=== PATIENT | male | born 1985 | race Caucasian/White ===

== ENCOUNTER 2020-04-27 10:22 | Outpatient (CLI) | payer SELFPAY ==
--- NOTE | 2020-04-27 10:30 | XR_ITS ---
WS: [id number] EXAM: PA CHEST X-RAY WITH BILATERAL RIB SERIES DATE OF EXAMINATION: 04/27/2020, 1058 hours COMPARISON: None. HISTORY: Patient is 34 years old with left-sided rib pain. FINDINGS: Heart size and mediastinal contours as well as pulmonary vascularity are normal. Lungs are clear of c onsolidation. Minimal linear scarring or atelectasis right costophrenic angle. No effusion or pneumot horax. Bone density is normal. There are fractured anterior lateral left T8, T9 and T10 ribs without extensive displacement. No other definite rib fracture is seen.
--- NOTE | 2020-04-27 17:05 | XR_ITS ---
WS: [id number] EXAM: PA CHEST X-RAY WITH BILATERAL RIB SERIES DATE OF EXAMINATION: 04/27/2020, 1058 hours COMPARISON: None. HISTORY: Patient is 34 years old with left-sided rib pain. FINDINGS: Heart size and mediastinal contours as well as pulmonary vascularity are normal. Lungs are clear of c onsolidation. Minimal linear scarring or atelectasis right costophrenic angle. No effusion or pneumot horax. Bone density is normal. There are fractured anterior lateral left T8, T9 and T10 ribs without extensive displacement. No other definite rib fracture is seen. XR/XR ribs BI mn 4V w [id number] IMPRESSION: No acute pulmonary disease. Nondisplaced left anterolateral T8, T9 and T10 rib fractures.
== END 2020-04-27 10:23 | disposition home or self-care (01) ==
LOC: RADWPI 10:24
PROVIDERS: Family Provider Family Medicine; PCP Family Medicine; Visit Provider Family Medicine
DX: S22.42XA Multiple fractures of ribs, left side, initial encounter for closed fracture (principal); X58.XXXA Exposure to other specified factors, initial encounter
CPT/HCPCS: 71111

== ENCOUNTER → 2020-08-09 14:27 | Outpatient (BNVA) | payer SELFPAY | PROVIDERS: Family Provider Family Medicine; PCP Family Medicine; Visit Provider Nurse Practitioner Family | DX: Z20.828 Contact with and (suspected) exposure to other viral communicable diseases (principal); J06.9 Acute upper respiratory infection, unspecified | CPT/HCPCS: 87635 ==

== ENCOUNTER 2020-09-12 13:22 | Outpatient (CLI) | payer SELFPAY ==
[2020-09-12 13:59] LABS: Basophils # 0.1 10^3/uL (0.0-0.1); Basophils % 0.5 %; Eosinophils # 0.4 10^3/uL (0.0-0.8); Hematocrit 46.3 % (42.0-52.0); Hemoglobin 15.4 g/dL (11.7-16.6); Lymphocytes # 3.2 10^3/uL (0.8-4.8); Lymphocytes % 31.5 %; Mean Corpuscular HGB Conc 33.3 g/dL (30.0-36.0); Mean Corpuscular Volume 90.3 fL (80-94); Mean Platelet Volume 9.7 fL (7.4-10.4); Monocytes # 0.7 10^3/uL (0.2-0.9); Monocytes % 7.3 %; Neutrophils # 5.69 10^3/uL (1.8-7.7); Neutrophils % 56.4 %; Nucleated Red Blood Cells % 0 %; Platelet Count 245 10^3/cmm (130-400); Red Blood Count 5.13 10^6/uL (4.1-5.3); Red Cell Distribution Width 12.8 % (12.1-15.1); White Blood Count 10.1 10^3/uL (4.0-10.0)
[2020-09-12 14:04] LABS: Bilirubin Urine Neg (Negative); Blood Urine Neg (Negative); Glucose Urine UA Norm (Normal); Ketones Urine Negative (Negative); Leukocyte Esterase Urine Negative (Negative); Nitrate Urine Negative (Negative); Protein Urine Neg (Negative); Urine Appearance Clear (CLEAR); Urine Color Yellow (Yellow); Urobilinogen Urine Norm (Negative); pH Urine 6.5 (5-7)
[2020-09-12 14:19] LABS: Add Urine Culture? No; Bacteria Urine TRACE /hpf
[2020-09-12 14:26] LABS: Alanine Aminotransferase 52 U/L (0-41); Albumin Level 4.8 g/dL (3.5-5.2); Alkaline Phosphatase 94 IU/L (40-130); Anion Gap 14.9 (5-19); Aspartate Amino Transferase 28 U/L (0-40); Blood Urea Nitrogen 11 mg/dL (6-20); Calcium 9.3 mg/dL (8.5-10.5); Carbon Dioxide 24 mmol/L (22-29); Chloride 103 mmol/L (98-107); Globulin 2.8 g/dL (1.3-4.6); Glucose 89 mg/dL (65-115); Osmolality Calculated 285 mOsm/kg (285-295); Potassium 3.9 mmol/L (3.5-5.1); Sodium 138 mmol/L (136-145); Total Bilirubin 0.5 mg/dL (0.15-1.2); Total Protein 7.6 g/dL (6.6-8.7)
[2020-09-12 15:04] LABS: Hepatitis A Antibody IgM Non-Reactive (Nonreactive); Hepatitis B Core AB, Total Non-Reactive (Nonreactive); Hepatitis B Surface Antigen Non-Reactive (Nonreactive); Hepatitis C Virus Antibody Non-Reactive (Nonreactive)
[2020-09-13 16:13] LABS: Anti-Nuclear Antibody Screen NEGATIVE (NEGATIVE)
== END 2020-09-12 13:23 | disposition home or self-care (01) ==
LOC: LAB 13:24
PROVIDERS: PCP Family Medicine; Visit Provider Family Medicine
DX: R23.3 Spontaneous ecchymoses (principal)
CPT/HCPCS: 36415; 80053; 81001; 85025; 86038; 86431; 86705; 86706; 86709; 86803; 87340

== ENCOUNTER 2021-01-22 13:25 | Emergency (ER) | payer SELFPAY ==
[2021-01-22 13:32] VITALS: BP 163/102; PULSE 119; RESP 19; TEMP 37.1; O2SAT 95; BMI 32.8
--- NOTE | 2021-01-22 13:54 | W.ED.FALL ---
HPI - Fall General: Chief Complaint: Fall Stated Complaint: PELIVS/HIP PAIN Time Seen by Provider: 01/22/21 13:44 Source: patient Mode of arrival: ambulatory Limitations: no limitations History of Present Illness: HPI Narrative: Doc is a 35-year-old male who presents with a history of falling off of a lawnmower onto his lower back/pelvis 1.5 weeks ago. He states he tried to walk it off and has been using [id number] pain medications with only mild relief of his symptoms. He states he feels the pain mainly in his left pelvis and will sometimes have pain radiate down his left leg. Denies any saddle paresthesia or loss of bowel or bladder control. He is urinating without difficulty. He had an appointment at urgent care today and they advised him to come here for further evaluation. Has had no imaging of himself since this accident. Associated symptoms-after fall: Denies abdominal pain, chest pain, headache(s) or neck pain Review of Systems Const: Denies: fever(s) or chills Eyes: Denies: change in vision ENMT: Denies: throat pain Card: Denies: chest pain or palpitations Resp: Denies: dyspnea or productive cough GI: Denies: abdominal pain : Denies: difficulty urinating Musc: Reports: back pain and extremity pain; Denies: neck pain or extremity swelling Skin/Breast: Denies: rash or pruritus Neuro: Denies: headache(s) or frequent falls [facility] ED PFSH: Medical History Fibromyalgia No pertinent past medical history Surgical History History of eye surgery Family History Other Rheumatoid arthritis Thyroid condition Social History Smoking and tobacco status: current every day smoker e-cigarettes E-Cigarette Details: e-cigarette Alcohol intake: current Alcohol intake frequency: holidays/special occasions only Physical Exam Const: COMMON NORMALS: no acute distress GENERAL APPEARANCE: cooperative HENMT: COMMON NORMALS: normocephalic and atraumatic HEAD & SCALP: normocephalic and atraumatic Eye: COMMON NORMALS: Equal, round and reactive pupils present and EOMs intact bilaterally PUPIL: Yes Equal, round and reactive pupils present Neck/C-Spine: COMMON NORMALS: full ROM GENERAL: Yes normal visual inspection Chest: COMMONS NORMALS: normal inspection of the chest CHEST: Yes Symmetrical chest wall rise Resp: COMMON NORMALS: normal respiratory effort EFFORT & INSPECTION: Yes able to speak in complete sentences and Yes symmetric chest movement Cardio: COMMON NORMALS: regular rate and regular rhythm RATE: regular rate RHYTHM: regular rhythm Back/Pelvis: LUMBAR SPINE/LOWER BACK: Yes normal to inspection BACK IMAGE (MALE): 1. tender here 2. mild tenderness here Course ED course: IM shots of Decadron and Toradol ordered. Vital Signs: Vital signs: Vital Signs Temperature 98.7 F 01/22/21 13:32 Pulse Rate 119 H 01/22/21 13:32 Respiratory Rate 19 H 01/22/21 13:32 Blood Pressure 163/102 01/22/21 13:32 Pulse Oximetry 95 01/22/21 13:32 MDM - Fall MDM Narrative: Medical decision making narrative: No red flags for crafti back pain. We will treat him conservatively with IM shots of steroids and Toradol. We will discharge him home on indomethacin and muscle relaxers. He states he has a MRI scheduled for Friday and I told him to keep this appointment. Imaging Data^: Pelvis: Radiologist's impression: NO acute findings lumbar spine: Radiologist's impression: NO acute findings Discharge Plan Discharge Patient Disposition: Home Clinical Impression: Low back pain Qualifiers: Chronicity: acute Back pain laterality: left Sciatica presence: with sciatica Sciatica laterality: sciatica of left side Qualified Code(s): M54.42 - Lumbago with sciatica, left side Condition: Stable Prescriptions: New indomethacin 25 mg capsule 25 mg PO TID PRN (Reason: pain) Qty: 12 RF: 0 cyclobenzaprine 10 mg tablet 10 mg PO BID PRN (Reason: muscle spasm) Qty: 12 RF: 0 No Action Savella 50 mg tablet 50 mg PO BID Qty: 60 RF: 0 Midol Complete 500-60-15 mg Tablet 2 tab PO PRN RF: 0 Tylenol Extra Strength 500 mg Tablet 1,000 mg PO PRN RF: 0 sildenafil (pulm.hypertension) 20 mg tablet 20 - 100 mg PO PRN RF: 0 Discharge Orders: Discharge ED (Routine); Ordered 01/22/21 Ordered By: Khushboo Barahona Referrals: Mireille Bautista DO [Primary Care Provider] - Discharge Diet: Usual diet Discharge Activity: Increase activity as tolerated Patient Instructions: Opioid Safety Activity Restrictions/Additional Instructions: Take indomethacin 3 times a day for the next 3 days. Take as needed as directed after that. Take with food. Use muscle relaxer as needed as directed. Do not drive or operate machinery while taking this medication. Follow-up with your family doctor in 3 to 5 days. Discussed outpatient physical therapy or further imaging with them if pain persist despite conservative treatment. Return if any problems. Coding Level of Care Code ED Director Pharmacy Services for Ronald Fwjosefa Exam Comprehensive
--- NOTE | 2021-01-22 13:55 | XRR_ITS ---
PROCEDURE INFORMATION: Exam: XR Lumbosacral Spine Exam date and time: 01/22/2021 2:18 PM Age: 35 years old Clinical indication: Pain and injury or trauma; Fall; Blunt trauma (contusions or hematomas); Low back pain; Injury date: 9 days ago; Additional info: Fall, low back pain TECHNIQUE: Imaging protocol: XR of the lumbosacral spine. Views: 2 or 3 views. COMPARISON: No relevant prior studies available. FINDINGS: Bones/joints: Straightening of the normal lumbar lordosis. No acute fracture. Normal alignment. Soft tissues: Grossly unremarkable. XR/XR lumbar spine 2-3V* [id number] IMPRESSION: No acute radiographic findings.
--- NOTE | 2021-01-22 13:55 | XRR_ITS ---
PROCEDURE INFORMATION: Exam: XR Pelvis Exam date and time: 01/22/2021 2:18 PM Age: 35 years old Clinical indication: Pain and injury or trauma; Fall; Blunt trauma (contusions or hematomas); Left; Pelvic region; Pelvic pain; Injury date: 9 days ago; Additional info: Fall, left pelvis pain TECHNIQUE: Imaging protocol: XR pelvis. Views: 1 or 2 view. COMPARISON: No relevant prior studies available. FINDINGS: Bones/joints: No radiographic evidence of acute fracture or dislocation. Alignment anatomic. Joint spaces preserved. Soft tissues: Grossly unremarkable. XR/XR pelvis 1-2V* [id number] IMPRESSION: No acute radiographic findings.
[2021-01-22] MEDS: dexamethasone 10 mg/mL INJ IM (14:45)
[2021-01-22] MEDS: ketorolac 30 mg/mL INJ IM (14:45)
[2021-01-22 15:22] VITALS: BP 157/99; PULSE 101; RESP 18; O2SAT 95
== END 2021-01-22 15:24 | disposition home or self-care (01) ==
PROVIDERS: Emergency Provider Physician Assistant; PCP Family Medicine
DX: M54.42 Lumbago with sciatica, left side (principal); F17.210 Nicotine dependence, cigarettes, uncomplicated
CPT/HCPCS: 72100; 72170; 96372; 99283; J1100; J1885

== ENCOUNTER 2021-03-16 20:41 | Emergency (ER) | payer SELFPAY ==
[2021-03-16 20:52] VITALS: BP 147/91; PULSE 116; RESP 19; TEMP 36.7; O2SAT 95; BMI 34.7
[2021-03-16 21:33] LABS: Basophils # 0.1 10^3/uL (0.0-0.1); Basophils % 0.7 %; Eosinophils # 0.5 10^3/uL (0.0-0.8); Eosinophils % 5.1 %; Hematocrit 48.6 % (42.0-52.0); Hemoglobin 16.7 g/dL (11.7-16.6); Lymphocytes # 3.6 10^3/uL (0.8-4.8); Lymphocytes % 35.3 %; Mean Corpuscular HGB Conc 34.4 g/dL (30.0-36.0); Mean Corpuscular Hemoglobin 31.2 pg (28.0-34.0); Mean Corpuscular Volume 90.8 fL (80-94); Mean Platelet Volume 9.4 fL (7.4-10.4); Monocytes # 0.6 10^3/uL (0.2-0.9); Monocytes % 5.3 %; Neutrophils # 5.47 10^3/uL (1.8-7.7); Neutrophils % 53.1 %; Nucleated Red Blood Cells % 0 %; Platelet Count 289 10^3/cmm (130-400); Red Blood Count 5.35 10^6/uL (4.1-5.3); Red Cell Distribution Width 12.6 % (12.1-15.1); White Blood Count 10.3 10^3/uL (4.0-10.0)
[2021-03-16 21:52] LABS: Alanine Aminotransferase 178 U/L (0-41); Albumin Level 4.9 g/dL (3.5-5.2); Alcohol Level 159 mg/dL (0-10); Alkaline Phosphatase 123 IU/L (40-130); Anion Gap 19.7 (5-19); Aspartate Amino Transferase 73 U/L (0-40); Blood Urea Nitrogen 8 mg/dL (6-20); Calcium 9.1 mg/dL (8.5-10.5); Carbon Dioxide 23 mmol/L (22-29); Chloride 103 mmol/L (98-107); Globulin 2.9 g/dL (1.3-4.6); Glomerular Filtration Rate 128.3 mL/min (90-130); Glucose 99 mg/dL (65-115); Osmolality Calculated 292 mOsm/kg (285-295); Potassium 3.7 mmol/L (3.5-5.1); Sodium 142 mmol/L (136-145); Total Bilirubin 0.3 mg/dL (0.15-1.2); Total Protein 7.8 g/dL (6.6-8.7)
[2021-03-16 22:00] LABS: Acetaminophen < 5.0 ug/mL (10-30); Salicylate < 0.3 mg/dL (3-10)
--- NOTE | 2021-03-16 22:00 | W.ED.PSYCH ---
HPI - Psych General: Chief Complaint: Psychiatric Symptoms Stated Complaint: anger and frustration Time Seen by Provider: 03/16/21 20:52 Source: patient Mode of arrival: ambulatory Limitations: no limitations History of Present Illness: HPI Narrative: 35-year-old male who states that he is working on cabinets this evening had been drinking little. He states that he was getting very upset and angry while he was working and states he had a fit of rage. States that he had called his and kids and told him not to come out to the garage and he had sat in a chair and called EMS. States he never had any suicidal or homicidal thoughts. He states that he was just very angry. He denies any worsening improving factors. Denies any previous suicide attempts. He states he does not have any guns in his house. Associated symptoms: Deny depression Review of Systems Const: Denies: fever(s), chills, body aches or change in appetite Eyes: Denies: blurry vision or eye discomfort ENMT: Denies: throat pain or dental pain Card: Denies: chest pain Resp: Denies: dyspnea GI: Denies: abdominal pain, nausea, vomiting or diarrhea : Denies: dysuria Musc: Denies: neck pain or back pain Skin/Breast: Denies: rash Neuro: Denies: headache(s) Psych: Reports: mood swings; Denies: depression Rk/Lymph: Denies: easy bruising All/Imm: Denies: urticaria PFSH ED PFSH: Medical History Fibromyalgia Surgical History History of eye surgery Family History Other Rheumatoid arthritis Thyroid condition Social History Smoking and tobacco status: current every day smoker e-cigarettes E-Cigarette Details: e-cigarette Alcohol intake: current Alcohol intake frequency: holidays/special occasions only Physical Exam Const: COMMON NORMALS: no acute distress, patient oriented x3 and healthy appearing HENMT: COMMON NORMALS: normocephalic and atraumatic HEAD & SCALP: normocephalic and atraumatic Eye: COMMON NORMALS: Equal, round and reactive pupils present and EOMs intact bilaterally PUPIL: Yes Equal, round and reactive pupils present Neck/C-Spine: COMMON NORMALS: full ROM and supple Chest: COMMONS NORMALS: normal inspection of the chest and normal palpation of entire chest wall Resp: COMMON NORMALS: normal respiratory effort, No retractions, No use of accessory muscles and clear to auscultation bilaterally AUSCULTATION: clear to auscultation bilaterally Cardio: COMMON NORMALS: regular rate, regular rhythm and No murmurs present (Cardio) RATE: regular rate RHYTHM: regular rhythm GI: COMMON NORMALS: Normal to inspection, nondistended, normoactive bowel sounds present, Soft to palpation, non-tender and no masses PALPATION: Yes Soft to palpation Extremity: COMMON NORMALS: normal to inspection and full ROM Neuro: COMMON NORMALS: patient oriented x3, moves all extremities and no focal motor deficits Psych: COMMON NORMALS: mental status grossly normal, Normal thought process present and cooperative THOUGHT PROCESS: Normal thought process present Skin: COMMON NORMALS: no rashes or lesions noted and no wounds GENERAL SKIN EXAM: no rashes or lesions noted Course Vital Signs: Vital signs: Vital Signs Temperature 98.1 F 03/16/21 20:52 Pulse Rate 116 H 03/16/21 20:52 Respiratory Rate 19 H 03/16/21 20:52 Blood Pressure 147/91 03/16/21 20:52 Pulse Oximetry 95 03/16/21 20:52 MDM - Psych MDM Narrative: Medical decision making narrative: Patient presents with an anger outburst. Patient is also intoxicated and has been having some issues with drinking could contribute to this. Patient was evaluated by Dr. Green who feels he has no immediate threat to himself or others and feels he is stable for discharge. I agree with Dr. Green evaluation as well. Patient is to follow-up with [facility] and return if worsening. He understands agrees to plan. Lab Data: Labs: Lab Results 03/16/21 03/16/21 Range/Units 21:27 21:27 WBC 10.3 H (4.0-10.0) 10^3/ uL RBC 5.35 H (4.1-5.3) 10^6/u L Hgb 16.7 H (11.7-16.6) g/dL Hct 48.6 (42.0-52.0) % MCV 90.8 (80-94) fL MCH 31.2 (28.0-34.0) pg MCHC 34.4 (30.0-36.0) g/dL RDW 12.6 (12.1-15.1) % Plt Count 289 (130-400) 10^3/c mm MPV 9.4 (7.4-10.4) fL Neut % (Auto) 53.1 % Lymph % (Auto) 35.3 % Spink % (Auto) 5.3 % Eos % (Auto) 5.1 % Baso % (Auto) 0.7 % Neut # (Auto) 5.47 (1.8-7.7) 10^3/u L Lymph # (Auto) 3.6 (0.8-4.8) 10^3/u L Spink # (Auto) 0.6 (0.2-0.9) 10^3/u L Eos # (Auto) 0.5 (0.0-0.8) 10^3/u L Baso # (Auto) 0.1 (0.0-0.1) 10^3/u L Nucleated RBC % (a uto) 0 % Nucleated RBCs # 0.0 /100WBC Sodium 142 (136-145) mmol/L Potassium 3.7 (3.5-5.1) mmol/L Chloride 103 (98-107) mmol/L Carbon Dioxide 23 (22-29) mmol/L Anion Gap 19.7 H (5-19) BUN 8 (6-20) mg/dL Creatinine 0.7 (0.7-1.2) mg/dL GFR Calculation 128.3 (90-130) mL/min Glucose 99 (65-115) mg/dL Calculated Osmolal ity 292 (285-295) mOsm/k g Calcium 9.1 (8.5-10.5) mg/dL Total Bilirubin 0.3 (0.15-1.2) mg/dL AST 73 H (0-40) U/L ALT 178 H (0-41) U/L Alkaline Phosphata se 123 (40-130) IU/L Total Protein 7.8 (6.6-8.7) g/dL Albumin 4.9 (3.5-5.2) g/dL Globulin 2.9 (1.3-4.6) g/dL Salicylates < 0.3 L (3-10) mg/dL Acetaminophen < 5.0 L (10-30) ug/mL Ethyl Alcohol 159 H (0-10) mg/dL Discharge Plan Discharge Patient Disposition: Home Clinical Impression: Outbursts of anger, Alcohol intoxication Condition: Stable Prescriptions: No Action metoprolol tartrate 50 mg tablet 50 mg PO BID Qty: 60 RF: 0 Savella 50 mg tablet 50 mg PO BID Qty: 60 RF: 5 Midol Complete 500-60-15 mg Tablet 2 tab PO PRN RF: 0 Tylenol Extra Strength 500 mg Tablet 1,000 mg PO PRN RF: 0 Discharge Orders: Discharge ED (Routine); Ordered 03/16/21 Ordered By: Elizabeth Roper Referrals: Mireille Bautista DO [Primary Care Provider] - Discharge Diet: Advance as tolerated Discharge Activity: Resume usual activity Patient Instructions: At-Risk Alcohol Use (ED) Coding Level of Care Code ED 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
[2021-03-16 22:12] VITALS: PULSE 88; RESP 18; O2SAT 100
--- NOTE | 2021-03-19 12:16 | DCPLANNER ---
renewable energy project manager had message to refer patient to [facility]. renewable energy project manager called phone number [phone], unable to speak with patient at this time. renewable energy project manager was able to leave a voicemail on patients phone to have patient return family preservation caseworker phone call.
== END 2021-03-16 22:14 | disposition home or self-care (01) ==
PROVIDERS: Emergency Provider Emergency Medicine; PCP Family Medicine
DX: R45.4 Irritability and anger (principal); F10.129 Alcohol abuse with intoxication, unspecified; Y90.6 Blood alcohol level of 120-199 mg/100 ml; F17.290 Nicotine dependence, other tobacco product, uncomplicated
CPT/HCPCS: 80053; 80307; 85025; 99283; Q3014

== ENCOUNTER → 2021-03-29 09:20 | Outpatient (BNVA) | payer SELFPAY | PROVIDERS: PCP Family Medicine; Visit Provider Family Medicine | DX: I10 Essential (primary) hypertension (principal) | CPT/HCPCS: 80061; 82043 ==

== ENCOUNTER 2021-04-10 08:13 | Outpatient (CLI) | payer SELFPAY ==
--- NOTE | 2021-04-10 08:45 | MR_ITS ---
WS: [id number] MRI BRAIN WITH AND WITHOUT CONTRAST HISTORY: OUTBURST OF ANGER COMPARISON: None available. TECHNIQUE: Multiplanar imaging performed through the brain with MultiHance 20 ml's IV. No acute infarcts are seen. Wright-white matter differentiation is well preserved. No susceptibility artifacts or prior lacunar infarcts. Ventricles and extra-axial spaces are normal. Clivus and pituitary gland are normal. Visualized posterior fossa and brainstem are also normal. Postcontrast images are negative for masses or vascular malformations. Dural venous sinuses are normal. Paranasal sinuses: Bilateral mucous retention cysts in the maxillary sinuses. There is mixed signal i ntensity within the cystic nodules with no enhancement. Mucoperiosteal thickening involving the ethmo id and sphenoid sinuses. No air-fluid levels. Mastoid air cells: Normal. Calvarium and scalp: Normal. MR/MR head wo/w con [id number] IMPRESSION: 1. No acute infarct or enhancing masses. 2. No significant volume loss or atrophy. 3. Bilateral maxillary sinus mucous retention cyst.
[2021-04-10] MEDS: gadobenate dimeglumine 20 mL vial IV (09:27)
== END 2021-04-10 08:14 | disposition home or self-care (01) ==
LOC: RADSHAW 08:21
PROVIDERS: PCP Family Medicine; Visit Provider Family Medicine
DX: R46.89 Other symptoms and signs involving appearance and behavior (principal); J34.1 Cyst and mucocele of nose and nasal sinus
CPT/HCPCS: 70553; A9577

== ENCOUNTER → 2021-07-03 15:48 | Outpatient (BNVA) | payer SELFPAY | PROVIDERS: PCP Family Medicine; Visit Provider Family Medicine | DX: N52.9 Male erectile dysfunction, unspecified (principal); R10.13 Epigastric pain; I10 Essential (primary) hypertension; Z68.35 Body mass index [BMI] 35.0-35.9, adult; F17.290 Nicotine dependence, other tobacco product, uncomplicated | CPT/HCPCS: 84403 ==

== ENCOUNTER → 2021-07-07 11:52 | Outpatient (BNVA) | payer OTHER, SELFPAY | PROVIDERS: PCP Family Medicine; Visit Provider Registered Nurse Neonatal Intensive Care | DX: Z20.822 Contact with and (suspected) exposure to COVID-19 (principal) | CPT/HCPCS: 87635 ==

== ENCOUNTER → 2021-09-17 16:44 | Outpatient (BNVA) | payer OTHER, SELFPAY | PROVIDERS: PCP Family Medicine; Visit Provider Registered Nurse Neonatal Intensive Care | DX: Z20.822 Contact with and (suspected) exposure to COVID-19 (principal) | CPT/HCPCS: 87635 ==

== ENCOUNTER 2023-03-11 19:34 | Observation (INO) | payer BC, SELFPAY ==
--- NOTE | 2023-03-11 19:39 | ECG_ITS ---
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 Measurements Intervals [place] Rate: 107 P: 26 [place]: 150 QRS: -23 QRSD: 88 T: 56 QT: 336 QTc: 450 Interpretive Statements SINUS TACHYCARDIA BORDERLINE LEFT AXIS DEVIATION [QRS AXIS < -20] ABNORMAL RHYTHM ECG No previous ECG available for comparison Electronically Signed On 03-11-2023 20:27:02 CDT by Gerald Robles M.D. [email or web address] at stone countyNevigouniversity [email or web address]/store/OM/[id number]
[2023-03-11 19:40] VITALS: BP 113/94; PULSE 111; RESP 20; TEMP 37; O2SAT 94; BMI 32.9
[2023-03-11 20:02] LABS: Basophils # 0.1 10^3/uL (0.0-0.1); Basophils % 0.6 %; Eosinophils # 0.4 10^3/uL (0.0-0.8); Eosinophils % 4.8 %; Hematocrit 54.1 % (42.0-52.0); Hemoglobin 18.4 g/dL (11.7-16.6); Lymphocytes # 3.2 10^3/uL (0.8-4.8); Lymphocytes % 37.1 %; Mean Corpuscular Volume 94.1 fl (80-94); Mean Platelet Volume 9.6 fL (7.4-10.4); Monocytes # 0.5 10^3/uL (0.2-0.9); Monocytes % 5.3 %; Neutrophils # 4.43 10^3/uL (1.8-7.7); Neutrophils % 51.7 %; Nucleated Red Blood Cells % 0 %; Platelet Count 201 10^3/cmm (130-400); Red Blood Count 5.75 10^6/uL (4.1-5.3); Red Cell Distribution Width 14.1 % (12.1-15.1); White Blood Count 8.6 10^3/uL (4.0-10.0)
[2023-03-11 20:19] LABS: Alanine Aminotransferase 78 U/L (0-41); Albumin Level 4.3 g/dL (3.5-5.2); Alcohol Level 242 mg/dL (0-10); Alkaline Phosphatase 128 U/L (40-130); Anion Gap 21.5 (5-19); Aspartate Amino Transferase 44 U/L (0-40); Blood Urea Nitrogen 4 mg/dL (6-20); Calcium 8.6 mg/dL (8.5-10.5); Carbon Dioxide 20 mmol/L (22-29); Chloride 106 mmol/L (98-107); Globulin 3.4 g/dL (1.3-4.6); Glomerular Filtration Rate 126.9 mL/min (90-130); Glucose 95 mg/dL (65-115); Osmolality Calculated 295 mOsm/kg (285-295); Potassium 3.5 mmol/L (3.5-5.1); Sodium 144 mmol/L (136-145); Total Bilirubin 0.5 mg/dL (0.15-1.2); Total Protein 7.7 g/dL (6.6-8.7)
[2023-03-11 20:20] LABS: Acetaminophen < 5.0 ug/mL (10-30); Salicylate < 0.3 mg/dL (3-10)
--- NOTE | 2023-03-11 20:28 | W.ED.PSYCHS ---
HPI - Psych General: Chief Complaint: Psychiatric Symptoms Stated Complaint: MHE Time Seen by Provider: 03/11/23 19:34 Source: patient and police Mode of arrival: other (police) Limitations: no limitations History of Present Illness: 37-year-old male states he has been drinking today and had called police because he had been erratic and also having wild mood swings and anger. Police states that once he arrived patient stated that he no longer wanted to live he had asked the assistant production editor to shoot him because he just wanted to . Patient here initially did not admit to SI but states he has had those thoughts he does have mood swings here he is very calm at 1 second and then becomes very agitated. Associated symptoms: Reports suicidal ideation; Deny depression Review of Systems Const: Denies: fever(s) or chills Eyes: Denies: eye discomfort ENMT: Denies: throat pain or dental pain Card: Denies: chest pain Resp: Denies: dyspnea GI: Denies: abdominal pain, nausea, vomiting or diarrhea Musc: Denies: neck pain or back pain Skin/Breast: Denies: rash Neuro: Denies: headache(s) Psych: Reports: mood swings and suicidal ideation; Denies: depression PFSH ED PFSH: Medical History Fibromyalgia Surgical History History of eye surgery Family History Other Rheumatoid arthritis Thyroid condition Social History Smoking and tobacco status: current some day smoker e-cigarettes E-Cigarette Details: e-cigarette Alcohol intake: current Alcohol intake frequency: holidays/special occasions only Substance/Drug Use: never Physical Exam Const: COMMON NORMALS: patient oriented x3 GENERAL APPEARANCE: odor of alcohol detected HENMT: COMMON NORMALS: normocephalic and atraumatic HEAD & SCALP: normocephalic and atraumatic Eye: COMMON NORMALS: conjunctivae normal CONJUNCTIVA: Yes conjunctivae normal Neck/C-Spine: COMMON NORMALS: full ROM and supple Chest: COMMONS NORMALS: normal inspection of the chest and normal palpation of entire chest wall Resp: COMMON NORMALS: normal respiratory effort, No retractions, No use of accessory muscles and clear to auscultation bilaterally AUSCULTATION: clear to auscultation bilaterally Cardio: COMMON NORMALS: regular rate, regular rhythm and No murmurs present (Cardio) RATE: regular rate RHYTHM: regular rhythm GI: COMMON NORMALS: Normal to inspection, nondistended, normoactive bowel sounds present, Soft to palpation, non-tender and no masses PALPATION: Yes Soft to palpation Extremity: COMMON NORMALS: normal to inspection and full ROM Neuro: COMMON NORMALS: patient oriented x3, moves all extremities and no focal motor deficits Psych: COMMON NORMALS: cooperative MOOD & AFFECT: Yes depressed mood and Yes irritable THOUGHT CONTENT: Yes Suicidality present Skin: COMMON NORMALS: no rashes or lesions noted and no wounds GENERAL SKIN EXAM: no rashes or lesions noted Course Vital Signs: Vital signs: Vital Signs Temperature 98.6 F 03/11/23 19:40 Pulse Rate 98 03/11/23 22:07 Respiratory Rate 16 03/11/23 22:07 Blood Pressure 94/57 03/11/23 22:07 Pulse Oximetry 92 03/11/23 22:07 Oxygen Delivery Me thod Room Air 03/11/23 19:40 MDM - Psych Medical Decision Making Patient presents here with alcohol intoxication he is also had some suicidal ideations he did become aggressive here but was able to verbally de-escalate he did take Haldol and Ativan I did place him under 96 as he had made multiple suicidal statements to police spoke to psychiatrist will admit. Medical Records I reviewed the patient's medical records. Lab Data I reviewed the patient's lab results. 03/11/23 19:55 03/11/23 19:55 Laboratory Results WBC 8.6 10^3/uL (4.0-10.0) 03/11/23 19:55 RBC 5.75 10^6/uL (4.1-5.3) H 03/11/23 19:55 Hgb 18.4 g/dL (11.7-16.6) H 03/11/23 19:55 Hct 54.1 % (42.0-52.0) H 03/11/23 19:55 MCV 94.1 fl (80-94) H 03/11/23 19:55 MCH 32.0 pg (28.0-34.0) 03/11/23 19:55 MCHC 34.0 g/dL (30.0-36.0) 03/11/23 19:55 RDW 14.1 % (12.1-15.1) 03/11/23 19:55 Plt Count 201 10^3/cmm (130-400) 03/11/23 19:55 MPV 9.6 fL (7.4-10.4) 03/11/23 19:55 Neut % (Auto) 51.7 % 03/11/23 19:55 Lymph % (Auto) 37.1 % 03/11/23 19:55 [place] % (Auto) 5.3 % 03/11/23 19:55 Eos % (Auto) 4.8 % 03/11/23 19:55 Baso % (Auto) 0.6 % 03/11/23 19:55 Neut # (Auto) 4.43 10^3/uL (1.8-7.7) 03/11/23 19:55 Lymph # (Auto) 3.2 10^3/uL (0.8-4.8) 03/11/23 19:55 [place] # (Auto) 0.5 10^3/uL (0.2-0.9) 03/11/23 19:55 Eos # (Auto) 0.4 10^3/uL (0.0-0.8) 03/11/23 19:55 Baso # (Auto) 0.1 10^3/uL (0.0-0.1) 03/11/23 19:55 Nucleated RBC % (auto) 0 % 03/11/23 19:55 Nucleated RBCs # 0.0 /100WBC 03/11/23 19:55 Sodium 144 mmol/L (136-145) 03/11/23 19:55 Potassium 3.5 mmol/L (3.5-5.1) 03/11/23 19:55 Chloride 106 mmol/L (98-107) 03/11/23 19:55 Carbon Dioxide 20 mmol/L (22-29) L 03/11/23 19:55 Anion Gap 21.5 (5-19) H 03/11/23 19:55 BUN 4 mg/dL (6-20) L 03/11/23 19:55 Creatinine 0.7 mg/dL (0.7-1.2) 03/11/23 19:55 GFR Calculation 126.9 mL/min (90-130) 03/11/23 19:55 Glucose 95 mg/dL (65-115) 03/11/23 19:55 Calculated Osmolality 295 mOsm/kg (285-295) 03/11/23 19:55 Calcium 8.6 mg/dL (8.5-10.5) 03/11/23 19:55 Total Bilirubin 0.5 mg/dL (0.15-1.2) 03/11/23 19:55 AST 44 U/L (0-40) H 03/11/23 19:55 ALT 78 U/L (0-41) H 03/11/23 19:55 Alkaline Phosphatase 128 U/L (40-130) 03/11/23 19:55 Total Protein 7.7 g/dL (6.6-8.7) 03/11/23 19:55 Albumin 4.3 g/dL (3.5-5.2) 03/11/23 19:55 Globulin 3.4 g/dL (1.3-4.6) 03/11/23 19:55 Salicylates < 0.3 mg/dL (3-10) L 03/11/23 19:55 Acetaminophen < 5.0 ug/mL (10-30) L 03/11/23 19:55 Ethyl Alcohol 242 mg/dL (0-10) H 03/11/23 19:55 Discharge Plan Discharge Patient Disposition: Admitted As Inpatient Admit Provider: Jaden Green Clinical Impression: Acute psychosis, Suicidal ideation, Alcohol intoxication Condition: Stable Coding Level of Care Code ED 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
[2023-03-11] MEDS: haloperidol inj 5 mg/mL INJ 1 mL IM (20:32)
[2023-03-11] MEDS: LORazepam 2 mg/mL INJ 1 mL IM (20:32)
[2023-03-11] MEDS: nicotine 21 mg Patch 1 PATCH TRANSDERMA (20:35)
--- NOTE | 2023-03-11 20:38 | PC.NURSE ---
1944 - patient is in hallway, yelling and being aggressive. Dr. Roper and staff with patient, attempting to calm patient down. Patient made statements about fucking people up. Police called for assistance in deescalating situation. Patient continuing to yell and saying he will leave one way or another. Police arrived and patient escorted back to room. Dr. Roper ordered medications for patient. Police assisted staff with calming patient and getting him to agree to take medications.
[2023-03-11 22:07] VITALS: BP 94/57; PULSE 98; RESP 16; O2SAT 92
--- NOTE | 2023-03-11 22:47 | PC.NURSE ---
2004 - Code 10 ER called Code 10 due to pt aggression. Upon arriving to ER, pt was in hallway with DR and multiple staff members. Pt was upset and repeating himself your not going to make me stay . Physician notified pt of 96 hour hold. Pt escalated despite many attempts to deescalate. Pt stated I'm going to take all you motherf*ckers out . This nurse requested PD presence due to nature of patient and threats being made. Police arrived and able to negotiate with pt into returning to pt room. Pt given medications IM at that time. Copy of 96 Hour Hold given to pt at that time by this RN and security.
[2023-03-11 22:56] VITALS: BP 90/56; PULSE 90; RESP 20; TEMP 36.5; O2SAT 93
[2023-03-12 06:00] VITALS: BP 130/87; PULSE 97; RESP 20; TEMP 36.7; O2SAT 93
[2023-03-12] MEDS: nicotine 21 mg Patch 1 PATCH TRANSDERMA (07:53)
[2023-03-12] MEDS: folic acid 1 mg Tablet PO ×2 (07:53→07:54)
--- NOTE | 2023-03-12 08:51 | P.NPUHP_ITS ---
Providers/Chief Complaint Admitting Physician: Jaden Green MD Primary Care Provider: Mireille Bautista DO Chief Complaint: MHE HPI NPU History of Present Illness Doc Tobar is a 37 year old male with no previous inpatient psychiatric history who was brought to the emergency department at [facility] after the patient's had reported the patient's behavior had been erratic with periods of intense mood swings and anger. The patient upon arrival of the police had reportedly asked the boner meat to shoot him as he stated that he w anted to . The patient arrived in the emergency department and had become agitated and received Haldol and Ativan and was placed under 96 due to the suicidal statements made by the police. He was admitted to the neuropsychiatric unit for further evaluation and treatment. On interview, the patient reports that March 11 was the first time that he had consumed alcohol in approximately 5 months. He reports that he had been consuming a significant amount and his blood alcohol level was 242 on admission. No depressed mood. He reports no sleep disturbance. He had does report having occasional mood swings and reports being frustrated. He reports no anhedonia. He denies having recalled making statement to hurt himself. He reports that his had been concerned about his drinking and that it led to her his discontinuation of alcohol 5 months ago. He had intimated a past history of alcohol withdrawal symptoms. He denied any past history of blackouts. He denied any feelings of hopelessness. He denied any history of psychosis. Inpatient psychiatric history: None Outpatient psychiatric history: The patient reports having been placed on Ritalin and Luvox as a child with reports of a history of ADHD. Drug and alcohol history: He reports that he had begun to use alcohol more sig nificantly 4 years ago after his child had been born with significant medical problems as he had stated having used as a way to cope with his stress. He had reported some history of shakes but reported no history of blackouts he denied any history of illicit drugs. He reports no history of drug or alcohol treatment. Medications: Metoprolol. Allergies: No known drug allergies Medical history: Hypertension Surgical history: None Family psychiatric history: None Legal history: None history: None Social history: Patient was born in [place] and raised by his biological parents until they at 15 at which time he lived with his mother. He had reported no history of physical sexual or emotional abuse. He had reported having been distracted easily and bored in school and had been placed on medications for ADHD. He reported that he graduated high school and attended college. He currently has been for 8 years and lives with his and 3 children ages 7 4 and 2 respectively. 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 [employer] NPU Home Medications Medication Instructions Recorded Confirmed Last Taken Type acetaminophen 500 mg tablet 1,000 mg PO PRN 01/22/21 01/12/23 Unknown History (Tylenol Extra Strength) abgfmeqebvxjr-brlpvxtx-obfdonzway 2 tab PO PRN 01/22/21 01/12/23 Unknown History 500 mg-60 mg-15 mg tablet (Midol Complete) metoprolol tartrate 25 mg tablet 25 mg PO BID #180 tabs 07/19/22 01/12/23 Unknown Rx hydrocodone 5 mg-acetaminophen 325 1 tab PO Q6H PRN pain 5 days #14 01/12/23 01/12/23 Unknown Rx mg tablet tabs methocarbamol 750 mg tablet 750 mg PO Q8H #30 tabs 01/12/23 01/12/23 Unknown Rx prednisone 20 mg tablet 60 mg PO DAILY 5 days #15 tabs 01/12/23 01/12/23 Unknown Rx Allergies Allergy/AdvReac Type Severity Reaction Status Date / Time No Known Allergies Allergy Verified 03/11/23 19:52 [facility] NPU PFSH: Medical History Fibromyalgia Surgical History History of eye surgery Family History Other Rheumatoid arthritis Thyroid condition Social History Smoking and tobacco status: current some day smoker e-cigarettes E-Cigarette Details: e-cigarette Alcohol intake: current Alcohol intake frequency: holidays/special occasions only Substance/Drug Use: never Mental Status Exam 2 MSE Comments: Patient had a torey complexion tall slightly overweight male who appeared his stated age. He was alert and oriented to person place and time his gait appeared within normal limits. His hygiene was good. There was no evidence of any abnormal involuntary motor movements tics or tremors appreciated. His speech was normal in regards to rate rhythm and prosody. His attention span appeared fair. His mood was described as okay. His affect appeared anxious. His thought process was linear and logical and goal-directed. His thought content showed no evidence of active homicidal or suicidal ideation. There was no evidence of any delusional thinking. His insight was poor. His judgment is poor. His impulse control appeared poor. Vitals/I&O/Wt Last Vital Signs Temp 98.1 F 03/12/23 06:00 Pulse 97 03/12/23 06:00 Resp 20 H 03/12/23 06:00 BP 130/87 03/12/23 06:00 Pulse Ox 93 03/12/23 06:00 O2 Del Method Room Air 03/12/23 06:00 Weight last 48 hrs Weight 129.274 kg Data NPU 03/11/23 19:55 03/11/23 19:55 A&P Assessment and plan (1) Alcohol abuse: (2) Suicidal ideation: (3) Alcohol intoxication: Plan Patient is a 37-year-old white male with a previous history of ADHD who presents involuntarily after becoming agitated and endorsing suicidal ideation while intoxicated. 1. Engage?patient in individual ,milieu, and group therapy ?2. ? We will attempt to gather collateral information from previous providers ?3. ? TO-15 minute checks on the unit. ?4.? Recommend sober living treatment at the highest level of care to which the patient is willing to commit. 5. Observe while on involuntary hold. Involuntary Hold Information 96 Hour Hold: 96 Hour Involuntary Admission: Yes 96 Hour Hold Ending Date: 03/17/23 96 Hour Hold Ending Time: 20:15 Attestations NPU Medical Necessity Statement*: Inpatient hospitalization is medically necessary and deemed to be the clinically appropriate intervention at this time. The patient will likely be hospitalized for at least 2 midnights. Is likely length of stay is 2 to 3 days. Coding Level of Care Code Acute Code for Chg Fwd Diagnoses Alcohol abuse F10.10 Suicidal ideation R45.851 Alcohol intoxication F10.929
[2023-03-12] MEDS: multivitamin therapeutic Tablet 1 TAB PO (09:15)
[2023-03-12] MEDS: thiamine 100 mg Tablet PO (09:15)
[2023-03-12 14:00] VITALS: BP 148/93; PULSE 103; RESP 16; TEMP 36.6; O2SAT 95
[2023-03-12] MEDS: nicotine 2 mg Gum BUCCAL ×2 (14:15→16:04)
--- NOTE | 2023-03-12 16:43 | P.NPUDS_ITS ---
Diagnoses at Discharge Discharge Diagnosis (1) Acute psychosis: Status: Acute (2) Alcohol abuse: Status: Acute (3) Suicidal ideation: Status: Acute (4) Alcohol intoxication: Status: Acute Reason for Visit Reason for Visit: MHE Brief History: History of Present Illness Doc Tobar is a 37 year old male with no previous inpatient psychiatric history who was brought to the emergency department at [facility] after the patient's had reported the patient's behavior had been erratic with periods of intense mood swings and anger.? The patient upon arrival of the police had reportedly asked the operations assistant to shoot him as he stated that he wanted to .? The patient arrived in the emergency department and had become agitated and received Haldol and Ativan and was placed under 96 due to the suicidal statements made by the police.? He was admitted to the neuropsychiatric unit for further evaluation and treatment.? On interview, the patient reports that March 11 was the first time that he had consumed alcohol in approximately 5 months.? He reports that he had been consuming a significant amount and his blood alcohol level was 242 on admission.? No depressed mood.? He reports no sleep disturbance.? He had does report having occasional mood swings and reports being frustrated.? He reports no anhedonia.? He denies having recalled making statement to hurt himself.? He reports that his had been concerned about his drinking and that it led to her his discontinuation of alcohol 5 months ago.? He had intimated a past history of alcohol withdrawal symptoms.? He denied any past history of blackouts.? He denied any feelings of hopelessness.? He denied any history of psychosis. Inpatient psychiatric history: None Outpatient psychiatric history: The patient reports having been placed on Ritalin and Luvox as a child with reports of a history of ADHD. Drug and alcohol history: He reports that he had begun to use alcohol more significantly 4 years ago after his child had been born with significant medical problems as he had stated having used as a way to cope with his stress.? He had reported some history of shakes but reported no history of blackouts he denied any history of illicit drugs.? He reports no history of drug or alcohol treatment. Medications: Metoprolol. Allergies: No known drug allergies Medical history: Hypertension Surgical history: None Family psychiatric history: None Legal history: None history: None Social history: Patient was born in [place] and raised by his biological parents until they at 15 at which time he lived with his mother.? He had reported no history of physical sexual or emotional abuse.? He had reported having been distracted easily and bored in school and had been placed on medications for ADHD.? He reported that he graduated high school and attended college.? He currently has been for 8 years and lives with his and 3 children ages 7 4 and 2 respectively. 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 Additionally, there was a general medical evaluation which was also within normal limits and revealed no new acute processes.? At the time of discharge, lethality was denied and psychosis was resolved.? Mood and anxiety were well managed.? The patient endorsed a plan to avoid all drugs of abuse and follow up with the aftercare recommendations of the treatment team.? The patient was evaluated and deemed to be absent credible lethality and had achieved the maximum benefit from an inpatient hospitalization, and so was discharged.? Involuntary Hold Information 96 Hour Hold: 96 Hour Involuntary Admission: Yes 96 Hour Hold Ending Date: 03/17/23 96 Hour Hold Ending Time: 20:15 Mental Status Exam MSE Comments: Patient had a torey complexion tall slightly overweight male who appeared his stated age. He was alert and oriented to person place and time his gait appeared within normal limits. His hygiene was good. There was no evidence of any abnormal involuntary motor movements tics or tremors appreciated. His speech was normal in regards to rate rhythm and prosody. His attention span appeared fair. His mood was described as okay. His affect appeared anxious. His thought process was linear and logical and goal-directed. His thought content showed no evidence of active homicidal or suicidal ideation. There was no evidence of any delusional thinking. His insight was limited. His judgment is fair. His impulse control appeared adequate Discharge Data Studies Completed and Pending: Pending at discharge Category Date Time Status Drug Screen, Urin e Stat Lab 03/11/23 19:38 Uncollected Laboratory Results WBC 8.6 10^3/uL (4.0- 10.0) 03/11/23 19:55 RBC 5.75 10^6/uL (4.1 -5.3) H 03/11/23 19:55 Hgb 18.4 g/dL (11.7-1 6.6) H 03/11/23 19:55 Hct 54.1 % (42.0-52.0 ) H 03/11/23 19:55 MCV 94.1 fl (80-94) H 03/11/23 19:55 MCH 32.0 pg (28.0-34. 0) 03/11/23 19:55 MCHC 34.0 g/dL (30.0-3 6.0) 03/11/23 19:55 RDW 14.1 % (12.1-15.1 ) 03/11/23 19:55 Plt Count 201 10^3/cmm (130 -400) 03/11/23 19:55 MPV 9.6 fL (7.4-10.4) 03/11/23 19:55 Neut % (Auto) 51.7 % 03/11/23 19:55 Lymph % (Auto) 37.1 % 03/11/23 19:55 [place] % (Auto) 5.3 % 03/11/23 19:55 Eos % (Auto) 4.8 % 03/11/23 19:55 Baso % (Auto) 0.6 % 03/11/23 19:55 Neut # (Auto) 4.43 10^3/uL (1.8 -7.7) 03/11/23 19:55 Lymph # (Auto) 3.2 10^3/uL (0.8- 4.8) 03/11/23 19:55 [place] # (Auto) 0.5 10^3/uL (0.2- 0.9) 03/11/23 19:55 Eos # (Auto) 0.4 10^3/uL (0.0- 0.8) 03/11/23 19:55 Baso # (Auto) 0.1 10^3/uL (0.0- 0.1) 03/11/23 19:55 Nucleated RBC % (a uto) 0 % 03/11/23 19:55 Nucleated RBCs # 0.0 /100WBC 03/11/23 19:55 Sodium 144 mmol/L (136-1 45) 03/11/23 19:55 Potassium 3.5 mmol/L (3.5-5 .1) 03/11/23 19:55 Chloride 106 mmol/L (98-10 7) 03/11/23 19:55 Carbon Dioxide 20 mmol/L (22-29) L 03/11/23 19:55 Anion Gap 21.5 (5-19) H 03/11/23 19:55 BUN 4 mg/dL (6-20) L 03/11/23 19:55 Creatinine 0.7 mg/dL (0.7-1. 2) 03/11/23 19:55 GFR Calculation 126.9 mL/min (90- 130) 03/11/23 19:55 Glucose 95 mg/dL (65-115) 03/11/23 19:55 Calculated Osmolal ity 295 mOsm/kg (285- 295) 03/11/23 19:55 Calcium 8.6 mg/dL (8.5-10 .5) 03/11/23 19:55 Total Bilirubin 0.5 mg/dL (0.15-1 .2) 03/11/23 19:55 AST 44 U/L (0-40) H 03/11/23 19:55 ALT 78 U/L (0-41) H 03/11/23 19:55 Alkaline Phosphata se 128 U/L (40-130) 03/11/23 19:55 Total Protein 7.7 g/dL (6.6-8.7 ) 03/11/23 19:55 Albumin 4.3 g/dL (3.5-5.2 ) 03/11/23 19:55 Globulin 3.4 g/dL (1.3-4.6 ) 03/11/23 19:55 Salicylates < 0.3 mg/dL (3-10 ) L 03/11/23 19:55 Acetaminophen < 5.0 ug/mL (10-3 0) L 03/11/23 19:55 Ethyl Alcohol 242 mg/dL (0-10) H 03/11/23 19:55 Vitals: Last Vital Signs Temp 98 F 03/12/23 14:00 Pulse 103 H 03/12/23 14:00 Resp 16 03/12/23 14:00 BP 148/93 03/12/23 14:00 Pulse Ox 95 03/12/23 14:00 O2 Del Method Room Air 03/12/23 14:00 Discharge Plan Discharge Patient Disposition: Home Condition: Stable Prescriptions: Continued metoprolol tartrate 25 mg tablet 25 mg PO BID Qty: 180 1RF hydrocodone-acetaminophen 5-325 mg tablet 1 tab PO Q6H PRN (Reason: pain) 5 Days Qty: 14 0RF methocarbamol 750 mg tablet 750 mg PO Q8H Qty: 30 0RF prednisone 20 mg tablet 60 mg PO DAILY 5 Days Qty: 15 0RF Midol Complete 500-60-15 mg Tablet 2 tab PO PRN Tylenol Extra Strength 500 mg Tablet 1,000 mg PO PRN Discharge Orders: Discharge Order (Routine); Ordered 03/12/23 Ordered By: Praveen Seay Referrals: [facility] [Other] - 1-3 days (Go to [email or web address]com to participate in recovery. They provide support and will pay for progress in outcomes.) Mireille Bautista DO [Primary Care Provider] - Discharge Diet: Usual diet Discharge Activity: Resume usual activity Patient Instructions: Opioid Safety Discharge Attestations NPU Time Spent in Discharge Care*: less than 30 min Coding Level of Care Code Acute Chg FW DC note Diagnoses Acute psychosis F23 Alcohol abuse F10.10 Suicidal ideation R45.851 Alcohol intoxication F10.929
[2023-03-12 17:08] VITALS: BP 148/93; PULSE 103; RESP 16; TEMP 36.6; O2SAT 95
--- NOTE | 2023-03-12 17:24 | PC.NURSE ---
written discharge instruction discussed with patient. pt states understanding and compliance. work excuse given to patient. pt to discharge home with family.
== END 2023-03-12 18:26 | disposition home or self-care (01) ==
LOC: ER 20:30 → NP 22:09
PROVIDERS: Admitting Provider Psychiatry & Neurology Psychiatry; Emergency Provider Emergency Medicine; PCP Family Medicine; Visit Provider Psychiatry & Neurology Psychiatry
DX: R45.851 Suicidal ideations (principal); F10.129 Alcohol abuse with intoxication, unspecified; Y90.8 Blood alcohol level of 240 mg/100 ml or more; I10 Essential (primary) hypertension; F17.290 Nicotine dependence, other tobacco product, uncomplicated
CPT/HCPCS: 36415; 80053; 80307; 85025; 93005; 96372; 97165; 99285; G0378; J1630; J2060